=== PATIENT | male | born 1980 ===

== ENCOUNTER → 2020-11-29 11:02 | Outpatient (CLI) | payer OTHER, SELFPAY ==
--- NOTE | ~2020-11-29 | CT_ITS ---
EXAMINATION: CT abdomen pelvis wo/w con DATE: 11/29/2020 11:52 INDICATION: Microscopic hematuria TECHNIQUE: Computed tomography (CT) of the abdomen and pelvis was performed without intravenous contr ast. CT of the abdomen and pelvis was then performed with a total of 130 mL Omnipaque-350 intravenous contrast using a double-bolus technique for simultaneous opacification of the renal parenchyma and r enal collecting system. Automated exposure control and iterative reconstruction technique were employ ed. The dose-length product was 2177.94 mGy-cm. COMPARISON: None FINDINGS: Lung bases are clear. Heart size is normal. No pericardial or pleural effusion. Focal hepatic steatos is along the ligamentum teres. Gallbladder, pancreas and bilateral adrenal glands are normal. A few s mall splenic calcific a cyst consistent with old granulomatous disease. 10 mm low-attenuation nonenha ncing cyst at the interpolar region of the left kidney. Bilateral kidneys and ureters are otherwise u nremarkable with no urolithiasis or hydroureteronephrosis. No evident urothelial regularity is at the bilateral renal collecting systems and ureters are opacified in their entirety. Bilateral ureteral j ets are visualized within the normal-appearing bladder. Small bowel and appendix are normal. There ar e a few scattered colonic diverticula without adjacent inflammatory change to suggest diverticulitis. No free intraperitoneal gas or fluid. No pathologically enlarged abdominal or pelvic lymphadenopathy . L5 spondylolysis with bilateral pars intra-articular is defects but no spondylolisthesis. IMPRESSION: 1. 10 mm left renal cyst. Otherwise normal kidneys and ureters with no urolithiasis or evident neopla sm. 2. Bilateral L5 pars interarticularis defects. Reviewed, dictated and finalized at location A. IMPRESSION: 1. 10 mm left renal cyst. Otherwise normal kidneys and ureters with no urolithi asis or evident neoplasm. 2. Bilateral L5 pars interarticularis defects.
[2020-11-29 11:26] LABS: Estimated Glomerular Filt Rate > 60
== END ==
PROVIDERS: PCP Family Medicine; Visit Provider Urology
DX: R31.29 Other microscopic hematuria (principal); N28.1 Cyst of kidney, acquired
CPT/HCPCS: 74178; Q9967